=== PATIENT | male | born 1935 | race Hispanic/Latino ===

== ENCOUNTER → 2022-02-12 | Outpatient (CLI) | payer MEDICARE, BC | LOC: MRI 09:50 | PROVIDERS: ATTEND Specialist | DX: M17.12 Unilateral primary osteoarthritis, left knee (principal); S83.412D Sprain of medial collateral ligament of left knee, subsequent encounter; S83.222D Peripheral tear of medial meniscus, current injury, left knee, subsequent encounter; M70.52 Other bursitis of knee, left knee ==

== ENCOUNTER 2023-01-15 09:55 | Outpatient (RCR) | payer MEDICARE, BC | END 2023-01-16 | LOC: PT 09:55 | PROVIDERS: ATTEND Specialist | DX: M17.12 Unilateral primary osteoarthritis, left knee (principal) ==

== ENCOUNTER 2023-02-13 13:00 | Outpatient (RCR) | payer MEDICARE, BC | END 2023-02-15 | LOC: PT 13:00 | PROVIDERS: ATTEND Specialist | DX: M17.12 Unilateral primary osteoarthritis, left knee (principal) ==

== ENCOUNTER 2023-03-02 13:00 | Outpatient (RCR) | payer MEDICARE, BC | END 2023-03-18 | LOC: PT 13:00 | PROVIDERS: ATTEND Specialist | DX: M17.12 Unilateral primary osteoarthritis, left knee (principal) ==